=== PATIENT | female | born 1985 | race Caucasian/White ===

== ENCOUNTER 2022-08-21 10:45 | Emergency (ER) | payer MEDICAID ==
[~2022-08-21] VITALS: Ht 159.3 cm; Wt 73.6 kg
[2022-08-21 11:27] VITALS: BP 115/71
--- NOTE | 2022-08-21 11:33 | NUR ---
COVID, FLU SWABS DONE.
[2022-08-21] MEDS ORDERED: DIPH-670 PO (12:52)
[2022-08-21] MEDS ORDERED: ACET-9882 PO (12:52)
[2022-08-21] MEDS ORDERED: TAM75 PO (13:33)
--- NOTE | 2022-08-21 13:46 | NUR ---
Patient discharged with v/s stable. Written and verbal after care instructions given and explained for URI. Patient alert, oriented and verbalized understanding of instructions. Ambulatory with steady gait. All questions addressed prior to discharge. ID band removed. Patient advised to follow up with PMD. Rx of Benadryl, Acetaminophen given. Patient educated on indication of medication including possible reaction and side effects. Opportunity to ask questions provided and answered.
[2022-08-21 15:07] LABS: APPEARANCE,URINE CLEAR (CLEAR); BILIRUBIN,URINE NEGATIVE (NEGATIVE); BLOOD, URINE NEGATIVE (NEGATIVE); COLOR,URINE YELLOW (YELLOW); LEUKOCYTE ESTERASE ,URINE 1+ (NEGATIVE); NITRITE, URINE NEGATIVE (NEGATIVE); UGLUCOSE NEGATIVE (NEGATIVE)
[2022-08-21 15:47] LABS: OTHER CASTS, URINE None Seen /LPF (None Seen)
[2022-08-21] MEDS ORDERED: CEPH-588 PO (20:41)
== END 2022-08-21 13:46 | disposition home or self-care (01) ==
LOC: MED 10:45
DX: J10.1 Influenza due to other identified influenza virus with other respiratory manifestations (principal); Z20.822 Contact with and (suspected) exposure to COVID-19; N39.0 Urinary tract infection, site not specified; Z79.899 Other long term (current) drug therapy
CPT/HCPCS: 81001; 87086; 99283

== ENCOUNTER 2022-08-23 05:06 | Inpatient (IN) | payer MEDICAID ==
[~2022-08-23] VITALS: Ht 160 cm; Wt 71.2 kg
[~2022-08-23 05:06] MED LIST: ACET-9882 PO; CEPH-588 PO; DIPH-670 PO; TAM75 PO
[2022-08-23 05:24] VITALS: BP 121/72
[2022-08-23] MEDS ORDERED: METHYLERGONOVINE 0.2 MG/ML AMP IM PRN ×2 (05:25→18:45)
[2022-08-23] MEDS ORDERED: LACTATED RINGERS 500 ML IV SCH (05:25)
[2022-08-23] MEDS ORDERED: PREN-543 PO (05:25)
[2022-08-23] MEDS ORDERED: CARBOPROST 250 MCG/ML AMP IM PRN (05:25)
[2022-08-23 05:58] LABS: BASOPHILS % (AUTO) 0.2 % (0.0-2.0); EOSINOPHILS # (AUTO) 0.1 K/uL (0-0.4); HEMATOCRIT 37.3 % (36-48); HEMOGLOBIN 12.6 g/dL (12.0-16.0); LYMPHOCYTES # (AUTO) 3.2 K/uL (2.5-16.5); LYMPHOCYTES % (AUTO) 25.5 % (20.5-51.1); MEAN CORPUSCULAR HEMOGLOBIN 31 pg (27-31); MEAN CORPUSCULAR HGB CONC 34 g/dL (33-37); MEAN CORPUSCULAR VOLUME 92.6 fL (80-94); MONOCYTES # (AUTO) 0.6 K/uL (0.8-1.0); MONOCYTES % (AUTO) 5.1 % (1.7-9.3); NEUTROPHILS # (AUTO) 8.5 K/uL (1.8-7.7); NEUTROPHILS % (AUTO) 68.2 % (42.2-75.2); PLATELET COUNT (AUTO) 192 K/uL (140-450); RED BLOOD CELL COUNT(AUTO) 4.02 MIL/uL (4.20-5.40); RED CELL DISTRIBUTION WIDTH 13.4 % (11.6-13.7); WHITE BLOOD COUNT (AUTO) 12.4 K/uL (4.8-10.8)
[2022-08-23] MEDS: LACTATED RINGERS 1,000 ML IV SCH ×2 (05:58→06:45)
[2022-08-23 06:01] LABS: APPEARANCE,URINE CLEAR (CLEAR); BILIRUBIN,URINE NEGATIVE (NEGATIVE); BLOOD, URINE TRACE-I (NEGATIVE); COLOR,URINE YELLOW (YELLOW); LEUKOCYTE ESTERASE ,URINE TRACE (NEGATIVE); NITRITE, URINE NEGATIVE (NEGATIVE); PH,URINE 6.5 (5.0-9.0); UGLUCOSE NEGATIVE (NEGATIVE)
[2022-08-23 06:05] LABS: RBC,URINE 0-5 /HPF (0-5)
[2022-08-23 06:06] LABS: WBC,URINE 0-5 /HPF (0-5)
[2022-08-23 06:11] LABS: BARBITURATE, URINE NEGATIVE ng/ml (NEG <=200)
[2022-08-23 06:12] LABS: BENZODIAZEPINE, URINE NEGATIVE ng/mL (NEG <=200); CANNABINOID, URINE NEGATIVE ng/mL (NEG <=50); COCAINE, URINE NEGATIVE ng/mL (NEG <=300); OPIATE, URINE NEGATIVE ng/mL (NEG <=2000); PHENCYCLIDINE SCREEN,URINE NEGATIVE ng/mL (NEG <=25)
[2022-08-23] MEDS ORDERED: MORPHINE SULFATE 10 MG/ML VIAL ONE (06:21)
[2022-08-23] MEDS ORDERED: ONDANSETRON 4 MG/2 ML VIAL ONE (06:22)
[2022-08-23] MEDS ORDERED: ONDANSETRON 4 MG/2 ML VIAL IVP PRN (06:25)
[2022-08-23] MEDS ORDERED: MORPHINE SULFATE 5 MG/ML VIAL IVP SCH (06:25)
[2022-08-23] MEDS ORDERED: LIDOCAINE 1% 500 MG/ 50 ML VIAL INJ SCH (06:25)
[2022-08-23] MEDS ORDERED: OXYTOCIN 20 UNITS in LACTATED RINGERS 1,000 ML IV SCH (06:25)
[2022-08-23 06:27] VITALS: BP 121/72
[2022-08-23 06:32] LABS: PROTHROMBIN TIME 8.6 secs (10.8-13.4)
[2022-08-23] MEDS ORDERED: OXYTOCIN 20 UNITS/LR PREMIX 1,000 ML IV ONE (06:35)
[2022-08-23] MEDS ORDERED: LIDOCAINE 1% 500 MG/50 ML VIAL ONE (07:06)
[2022-08-23 07:21] LABS: ALBUMIN 2.4 g/dL (3.4-5.0); ANION GAP 13.5 (8-16); CARBON DIOXIDE 20.1 mmol/L (21-32); CREATININE 0.7 mg/dL (0.6-1.3); POTASSIUM 3.6 mmol/L (3.5-5.1); TOTAL BILIRUBIN 0.4 mg/dL (0.0-1.0)
[2022-08-23] MEDS ORDERED: DOCUSATE SODIUM 100 MG GELCAP PO PRN (09:30)
[2022-08-23] MEDS ORDERED: METHYLERGONOVINE 0.2 MG TAB PO PRN (09:30)
[2022-08-23] MEDS ORDERED: IBUPROFEN 600 MG TAB PO PRN (09:30)
[2022-08-23] MEDS ORDERED: IBUPROFEN 800 MG TAB PO PRN (09:30)
[2022-08-23] MEDS ORDERED: MEASLES, MUMPS, AND RUBELLA 1 VIAL SQVAC ONE (09:30)
[2022-08-23] MEDS ORDERED: BENZOCAINE/MENTHOL 20%-0.5% 60 GM CAN TP PRN (09:30)
[2022-08-23] MEDS ORDERED: MEASLES, MUMPS, AND RUBELLA 1 VIAL SQVAC PRN (09:45)
--- NOTE | 2022-08-24 08:23 | NUR ---
PATIENT HAS BEEN SCREENED AND CATEGORIZED LOW NUTRITION RISK. PATIENT WILL BE SEEN WITHIN 7 DAYS OF ADMISSION. 08/23/22-08/30/[address]
[2022-08-24 09:30] LABS: HEMATOCRIT 36.7 % (36-48); HEMOGLOBIN 12.5 g/dL (12.0-16.0)
== END 2022-08-24 18:43 | disposition home or self-care (01) | DRG 560 ==
LOC: MLD 05:06 → OBSVTOIN 06:16 → MFCC 14:00
PROVIDERS: ADMIT Obstetrics & Gynecology; ATTEND Obstetrics & Gynecology
PROC: 10E0XZZ Delivery of Products of Conception, External Approach (ICD-10-PCS; principal; 2022-08-23)
PROC: 10907ZC Drainage of Amniotic Fluid, Therapeutic from Products of Conception, Via Natural or Artificial Opening (ICD-10-PCS; 2022-08-23)
PROC: 3E0234Z Introduction of Serum, Toxoid and Vaccine into Muscle, Percutaneous Approach (ICD-10-PCS; 2022-08-24)
DX: O69.1XX0 Labor and delivery complicated by cord around neck, with compression, not applicable or unspecified (principal); Z37.0 Single live birth; Z20.822 Contact with and (suspected) exposure to COVID-19; Z3A.39 39 weeks gestation of pregnancy; Z23 Encounter for immunization
CPT/HCPCS: 36415; 80053; 80305; 81001; 85018; 85025; 85610; 85730; 86592; 86762; 86886; 86900; 86901; 87086; 87340; 87653-90; 90715; J2001; J2270; J2405; J2590